=== PATIENT | male | born 2005 | race Hispanic/Latino ===

== ENCOUNTER 2024-07-18 15:24 | Emergency (ER) | payer BC, OTHER ==
[~2024-07-18 15:24] MED LIST: Iopamidol-370 76% 500 ML MDV (1 ML CHARGE) ONE
[2024-07-18] MEDS ORDERED: Morphine 4 MG/ML VIAL ONE (17:28)
[2024-07-18 19:49] LABS: ALT (SGPT) 23 U/L (8-55); AST (SGOT) 20 U/L (10-45); Albumin 4.7 g/dL (3.5-5.0); Alkaline Phosphatase 73 U/L (50-130); Anion Gap 10 mmol/L (10-20); BUN (Urea Nitrogen) 12 mg/dL (8.4-21.0); Bilirubin, Total 0.8 mg/dL (0.2-1.2); CK (CPK) 249 U/L (30-200); Calc. Creatinine Clearance 0 mL/min (70-130); Calcium 9.5 mg/dL (7.8-10.44); Carbon Dioxide 27 mmol/L (22-29); Chloride 104 mmol/L (98-107); Estimated GFR 128; Globulin 2.6 g/dL (2.4-3.5); Glucose 100 mg/dL (70-105); Potassium 4.2 mmol/L (3.5-5.1); Protein, Total 7.3 g/dL (6.0-8.3); Sodium 137 mmol/L (136-145)
[2024-07-18 19:50] LABS: #Basophils 0.05 10x3/uL (0.0-0.2); %Basophils 0.3 % (0.0-1.0); %Eosinophils 0.3 % (0.0-10.0); %Lymphocytes 11.6 % (28.0-48.0); %Monocytes 4.3 % (0.0-4.0); Hematocrit 44.6 % (42.0-52.0); Hemoglobin 15.7 g/dL (14.0-18.0); Mean Corpuscular HGB CONC 35.2 g/dL (32.0-36.0); Mean Corpuscular Hemoglobin 30.5 pg (25.0-35.0); Mean Corpuscular Volume 86.8 fL (78.0-98.0); Mean Platelet Volume 9.7 fL (7.4-10.4); Platelet Count 219 10x3/uL (130-400); RBC Distribution Width 11.9 % (11.5-14.5); Red Blood Cell (RBC) Count 5.14 mill/uL (4.00-5.20)
[2024-07-18 19:52] LABS: Troponin I Less than 0.010 ng/mL (< 0.028)
[2024-07-18] MEDS ORDERED: Acetaminophen 500 MG TAB ONE (20:17)
[2024-07-18] MEDS ORDERED: Ketorolac Tromethamine 30 MG (1 mL) VIAL ONE (20:17)
== END 2024-07-18 20:49 | disposition home or self-care (01) ==
LOC: ERS 15:24
DX: S40.212A Abrasion of left shoulder, initial encounter (principal); R10.32 Left lower quadrant pain; R07.89 Other chest pain; V49.9XXA Car occupant (driver) (passenger) injured in unspecified traffic accident, initial encounter
CPT/HCPCS: 36415; 71260; 74177; 80053; 82550; 84484; 85025; 93005; 96374; 96375; J1885; J2272; Q9967